=== PATIENT | female | born 1990 | race Caucasian/White ===

== ENCOUNTER 2021-05-20 07:55 | Outpatient (CLI) | payer OTHER, SELFPAY ==
--- NOTE | ~2021-05-20 | US_ITS ---
EXAMINATION: US OB <= 14 weeks fetus DATE: 05/20/2021 09:09 INDICATION: First trimester dating and viability assessment TECHNIQUE: Real-time pelvic transabdominal and transvaginal ultrasound was performed. COMPARISON: None. FINDINGS: The uterus measures 13.7 x 7.6 x 5.4 cm. There is an intrauterine gestational sac. A yolk sac is identified. heart motion is identified measuring 138 beats per minute (bpm) by M-mode Do ppler. The crown rump length measures 8 mm , which correlates with an estimated gestational age of 6 weeks and 5 day(s) (+/-) 4 day(s). The right ovary measures 4.1 x 2.9 x 2.2 cm. The left ovary measures 2.9 x 2.5 x 2.3 cm. There is nor mal vascular flow in the ovaries. There is no free fluid in the pelvis. IMPRESSION: 1. Live intrauterine with an estimated gestational age of 6 weeks and 5 day(s) (+/-) 4 day( s) and an estimated delivery date of 01/08/2022. Reviewed, dictated and finalized at location B. IMPRESSION: 1. Live intrauterine with an estimated gestational age of 6 weeks and 5 day(s) (+/-) 4 day(s) and an estimated delivery date of 01/08/2022.
== END 2021-05-20 07:56 | disposition home or self-care (01) ==
LOC: ANHIMG 07:59
PROVIDERS: Visit Provider Physician Assistant
DX: Z34.91 Encounter for supervision of normal pregnancy, unspecified, first trimester (principal); Z3A.01 Less than 8 weeks gestation of pregnancy
CPT/HCPCS: 76801

== ENCOUNTER 2021-07-16 07:44 | Outpatient (CLI) | payer OTHER, SELFPAY ==
--- NOTE | ~2021-07-16 | US_ITS ---
EXAMINATION: US OB follow up DATE: 07/16/2021 08:22 INDICATION: Encounter for supervision of normal , second trimester TECHNIQUE: Real-time ultrasound of the pelvis was performed. The interpreting radiologist was not pre sent for the study. COMPARISON: 05/20/2021 FINDINGS: There is a single living fetus in variable presentation. The placenta is posterior. c ardiac activity and movement are noted. heart rate is 146 beats per minute (bpm). The amn iotic fluid index is subjectively normal. The following biometric data were obtained: Biparietal diameter (BPD): 2.9 cm; head circumference (HC): 11.4 cm; abdominal circumference (AC): 10 .1 cm; femur length (FL): 1.8 cm. These measurements are concordant. Estimated weight is 134 g +/- 20 g, which correlates with the 93rd percentile when 01/08/2022 i s used as estimated date of delivery. As single measurements, these parameters are each equal to the following estimated gestational ages w ith ranges of +/- 2 standard deviations: BPD: 15 weeks 2 days +/- 1 weeks 1 days. HC: 15 weeks 4 days +/- 1 weeks 1 days. AC: 16 weeks 1 days +/- 1 weeks 5 days. FL: 15 weeks 3 days +/- 1 weeks 3 days. estimated gestational age based solely on measurements from this exam is 15 weeks 4 days +/- 1 weeks 1 days. IMPRESSION: 1. Single living fetus in variable presentation. 2. Estimated weight is 134 g +/- 20 g, which correlates with the 93rd percentile when 2 is used as estimated date of delivery. Reviewed, dictated and finalized at location A. IMPRESSION: 1. Single living fetus in variable presentation. 2. Estimated weight is 134 g +/- 20 g, which correlates with the 93rd per centile when 01/08/2022 is used as estimated date of delivery.
== END 2021-07-16 07:45 | disposition home or self-care (01) ==
LOC: ANHIMG 07:47
PROVIDERS: Visit Provider Physician Assistant
DX: Z34.90 Encounter for supervision of normal pregnancy, unspecified, unspecified trimester (principal); Z3A.15 15 weeks gestation of pregnancy
CPT/HCPCS: 76816

== ENCOUNTER 2021-12-13 09:43 | Inpatient (IN) | payer OTHER, SELFPAY ==
[2021-12-13] VITALS (56 sets, daily range): BP systolic 104–138; BP diastolic 39–79; PULSE 65–159; RESP 16–20; TEMP 36.3–36.7; O2SAT 96–100; BMI 34.8
[2021-12-13 10:26] LABS: Basophils Percent Auto 0.2 % (0.2-1.2); Eosinophils Absolute Auto 0.1 K/mm3 (0-0.3); Eosinophils Percent Auto 0.8 % (0-4.4); Hemoglobin 11.9 g/dL (12.0-15.0); Immature Granulocyte Absolute 0.19 K/mm3 (0.00-0.031); Lymphocytes Absolute Auto 1.59 K/mm3 (0.9-3.2); Lymphocytes Percent Auto 16.8 % (18.3-44.2); Mean Corpuscular Hemoglobin 32.2 pg (26-34); Mean Corpuscular Volume 94.9 fl (80-100); Mean Platelet Volume 10.9 fl (7.4-10.4); Monocytes Absolute Auto 0.5 K/mm3 (0.1-0.6); Monocytes Percent Auto 5.3 % (2.6-8.5); Neutrophils Absolute Auto 7.1 K/mm3 (1.3-6.7); Neutrophils Percent Auto 74.9 % (45.5-73.1); Platelet Count Result 210 k/mm3 (150-375); Red Blood Count 3.69 M/mm3 (4.2-5.4); Red Cell Distribution Width 14.3 % (11.5-14.5); White Blood Count 9.5 K/mm3 (4.5-10.0)
[2021-12-13] MEDS: LACTATED RINGERS 1,000 ML 125 ML IV CONT (10:30)
--- NOTE | 2021-12-13 10:35 | PM.IMHP ---
H&P: HPI History of Present Illness Date/Time: 12/13/21 10:35 Chief Complaint: Vaginal bleeding Narrative: Patient is a 31-year-old LMP 04/02/2021 currently 36w3d gestation with MARIBEL 01/07/2022 who presented to labor and delivery with complaints of vaginal bleeding. Patient receives outside care and states that has been uncomplicated thus far. Patient reports waking up this morning at 4:00 a.m. with right-sided lower back pain. A few hours later while making breakfast, patient reports experiencing a large gush of blood. She states I felt like I peed in my pants. Patient states that she went to bathroom to change her clothing and says that blood just kept coming. Patient denies any abdominal pain or contractions. Also denies any specific leakage of fluid as if membranes ruptured. Reports good movement. Denies any strenuous activity or recent intercourse. Upon arrival to labor and delivery, patient used restroom and bright red blood filled the toilet bowl. Patient states that all ultrasounds and testing has been normal with this . She was having growth scans performed every 4 weeks for prior history of LGA fetus during second . It is documented on an ultrasound report from 11/30/21 that patient stated that she may have gestational hypertension. When asked, patient states that she had a few elevated BP measurements on her home BP cuff, however, BP measurements in the office were within normal limits. Patient is asymptomatic and denies any headache, chest pain, SOB, N/V, visual disturbances, or RUQ tenderness. US did not report any other abnormalities, i.e. low lying placenta. Patient has a history of previous section x3. States that first section was performed for what sounds like nonreassuring heart tracing. Subsequent sections were scheduled repeat C-sections. Patient initially asked if permanent sterilization could be performed at this time, however, shortly afterwards, she declined proceeding with permanent sterilization. Therefore, this will not be performed. Review of Systems Review of Systems: All systems reviewed & are unremarkable except as noted in HPI and below Constitutional: Constitutional: Reports as per HPI and Reports no additional constitutional complaints Eyes: Eyes: Reports as per HPI and Reports no additional eye complaints ENT: Reports system reviewed and no additional complaints, except as documented and Reports as per HPI Cardiovascular: Cardiovascular: Reports as per HPI and Reports no additional cardiovascular complaints Respiratory: Respiratory: Reports as per HPI and Reports no additional respiratory complaints Gastrointestinal: Gastrointestinal: Reports as per HPI and Reports no additional gastrointestinal complaints Genitourinary: Genitourinary: Reports no additional female genitourinary complaints and Reports as per HPI Musculoskeletal: Musculoskeletal: Reports no additional musculoskeletal complaints and Reports as per HPI Integumentary/Breasts: Skin/Breast: Reports system reviewed and no additional complaints, except as docu and Reports as per HPI Neurologic: Reports system reviewed and no additional complaints, except as documented and Reports as per HPI Psychiatric: Psychiatric: Reports no additional psychiatric complaints and Reports as per HPI Endocrine: Endocrine: Reports no additional endocrine complaints and Reports as per HPI Hematologic/Lymphatic: Hematologic/Lymphatic: Reports no additional hematologic/lymphatic complaints and Reports as per HPI Allergic/Immunologic: Allergic/Immunologic: Reports no additional allergic/immunologic complaints and Reports as per HPI [facility] Surgical History Surgical History H/O dilation and curettage x1 Previous section x3 S/P tonsillectomy and adenoidectomy Social History Social History (Updated 12/13/21
--- NOTE | 2021-12-13 10:57 | WPDANESEPP ---
Anes - Eval Pre Procedure Procedure: Repeat c section Date/Time: 12/13/21 10:57 Surgeon: Ed Preop Diagnosis: Vaginal bleeding, previous c section Pre Op Diagnosis: bleeding Patient Data Age: 31 Gender: F Height: 1.65 m Weight: 95 kg Allergies Allergy/AdvReac Type Severity Reaction Status Date / Time No Known Allergies Allergy Verified 10/06/18 10:49 Home Medications Medication Instructions Recorded Confirmed Type azithromycin 250 mg tablet See Rx Instructions PO .COMPLEX #6 02/07/19 Rx tabs benzonatate 100 mg capsule 100 mg PO TID #20 caps 02/07/19 Rx (Tessalon Perles) codeine 10 mg-guaifenesin 100 mg/5 7.5 ml PO Q6H PRN cough #118 mL 02/07/19 Rx mL oral liquid lidocaine HCl 2 % mucosal solution 5 ml mucous membrane QID PRN pain 02/07/19 Rx (Lidocaine Viscous) #100 mL norelgestromin 150 mcg-e.estradiol patch 02/07/19 History 35 mcg/24 hr weekly transderm patch (Xulane) Laboratory Tests 12/13/21 12/13/21 12/13/21 10:05 10:05 10:45 WBC 9.5 K/mm3 K/mm3 (4.5-10.0) RBC 3.69 M/mm3 L M/mm3 (4.2-5.4) Hgb 11.9 g/dL L g/dL (12.0-15.0) Hct 35.0 % L % (37.0-47.0) MCV 94.9 fl fl (80-100) MCH 32.2 pg pg (26-34) MCHC 34.0 g/dl g/dl (32-36) RDW 14.3 % % (11.5-14.5) Plt Count 210 k/mm3 k/mm3 (150-375) MPV 10.9 fl H fl (7.4-10.4) Immature Gran % (Auto) 2.0 % H % (0-0.5) Neut % (Auto) 74.9 % H % (45.5-73.1) Lymph % (Auto) 16.8 % L % (18.3-44.2) [place] % (Auto) 5.3 % % (2.6-8.5) Eos % (Auto) 0.8 % % (0-4.4) Baso % (Auto) 0.2 % % (0.2-1.2) Lymph # (Auto) 1.59 K/mm3 K/mm3 (0.9-3.2) [place] # (Auto) 0.5 K/mm3 K/mm3 (0.1-0.6) Eos # (Auto) 0.1 K/mm3 K/mm3 (0-0.3) Baso # (Auto) 0.0 K/mm3 K/mm3 (0.0-0.1) Abs Immat Gran (auto) 0.19 K/mm3 H K/mm3 (0.00-0.031) Absolute Neuts (auto) 7.1 K/mm3 H K/mm3 (1.3-6.7) Absolute Nucleated RBC 0.0 K/mm3 K/mm3 (0.0-0.012) Nucleated RBC % 0.0 % % (0.0-0.2) PT Pending INR Pending APTT Pending Fibrinogen Pending D-Dimer Pending RPR Pending Patient hx anesthesia problems: none Family hx anesthesia problems: none Results Review: All pre-operative results and documents have been reviewed as part of the pre-operative evaluation. [facility] Surgical History Surgical History H/O dilation and curettage x1 Previous section x3 S/P tonsillectomy and adenoidectomy Social History Social History Smoking packs per day: 1 Smoking cigarettes per day: 20.0 Smoking status: Current every day smoker Tobacco type: cigarettes Exam Day of Procedure 12/13/21 10:57 Patient weight: normal Heart: regular rate and rhythm Lungs: normal air movement Airway: Mallampati scale class II Neurological: alert and oriented
[2021-12-13] MEDS: ceFAZolin 2 GM/D5W 50 ML 2 GM/50 ML BAG IVPB (10:59)
[2021-12-13 11:05] LABS: Prothrombin Time 12.8 Seconds (11.1-14.7)
[2021-12-13 11:06] LABS: Fibrinogen 363 mg/dl (215-510); Partial Thromboplastin Time 27.1 SECONDS (22.3-36.8)
--- NOTE | 2021-12-13 11:06 | WPDHPUPDATE1 ---
History and Physical Update Update Date/Time: 12/13/21 11:06 History and Physical has been reviewed, including an updated exam of the patient. There are NO changes in the patient's condition. Risks, benefits, and alternatives have been discussed and questions answered. Patient agrees to proceed with procedure.
--- NOTE | 2021-12-13 12:30 | W.PM.PROC2 ---
Procedure Note - Detailed Date of Procedure 12/13/21 Pre-op Diagnosis IUP at 36w3d gestation Vaginal bleeding Previous section x 3 Post-op Diagnosis Same Procedure Performed Repeat low transverse section via Pfannenstiel Surgeon Katy Ward MD Smasher Imani Garcia Indications Suspected placental abruption Findings Live female infant in cephalic presentation, apgars 7/9, weighing 6 lbs. 13 oz., clear amniotic fluid, moderate amount of dark bloody fluid upon entry into uterus; otherwise, normal appearing uterus, ovaries, and fallopian tubes bilaterally; dense scar tissue encountered to level of fascia and along lower uterine segment of uterus Description of Procedure The patient was taken to the operating room, where she self-transferred to the operating room table. Spinal anesthesia was administered and found to be adequate. The patient was placed in dorsal supine position with a leftward tilt. She was prepped and draped in the usual sterile fashion. Spinal anesthesia was tested and found to be adequate. A Pfannenstiel skin incision was made with a scalpel and carried through to underlying layer of fascia with the Bovie. Dense scar tissue was encountered to level of fascia. The fascia was incised in the midline and the incision was extended laterally with the use of forceps and Cam scissors. The inferior aspect of the fascial incision was grasped with Ino clamps, elevated, and the underlying rectus muscle were dissected off with Cam scissors. Attention was then turned to the superior aspect of the fascial incision, which in a similar manner, was grasped with Ino clamps, elevated, and the underlying rectus muscles were also dissected off with Cam scissors. The rectus muscles were grasped with Allis clamps, in the midline, and the peritoneal cavity was entered bluntly. Dense adhesions were encountered and this incision was carefully extended superiorly and inferiorly. A bladder blade was inserted. Adhesions were noted along the anterior surface of the lower uterine segment. Bladder margins not clearly delineated, so bladder flap not performed. An incision above the adhesions was made with the scalpel, however, this was still a low-transverse uterine incision. Immediately upon entry into the uterus, a moderate amount of bloody fluid was noted. The uterine incision was extended laterally with bandage scissors. Amniotic sac was visualized and amniotomy was performed. Clear amniotic fluid was noted. The infant's head was grasped and gently guided to the level of the uterine incision. The 's head was delivered easily and atraumatically without difficulty followed by the neck, shoulders, and rest of body with gentle fundal pressure. The 's nose and mouth were suctioned bulb suction. The was crying spontaneously. The cord was clamped and cut and the was handed off to awaiting pediatric staff. A segment of cord was collected for cord gases. Cord blood was also collected. The placenta was then delivered manually with gentle uterine massage. On brief inspection, placenta appeared grossly normal without evidence of significant clots. Uterus was exteriorized and cleared of all clots and debris. The bladder was noted to be tethered to the right side of lower uterine segment. The uterine incision was reapproximated with 0 Vicryl in a running, locked fashion. A second imbricating layer using 0 Monocryl performed. An small area of oozing was noted just left of midline. This area was made hemostatic with a figure of eight suture using 0 Vicryl. Excellent hemostasis was noted. There was a superficial vessel noted on the anterior surface of the bladder that was oozing. Minimal cautery was attempted, however, bleeding persisted. A short running segment using 3-0 Vicryl was used to obtain hemostasis. No further bleeding was noted. On inspection, the uterus, ovaries, and fallopian tubes appeared to be normal bilaterally. The u
--- NOTE | 2021-12-13 12:35 | PM.OBPRVD ---
OB - Delivery Note Procedure Delivery date: 12/13/21 Procedure: Procedures Operation Date: 12/13/21 11:00 Actual Procedure Side Surgeon p Section Katy Ward MD Events: Previous Delivery (x3) and Other (outside care) Intrapartal Events: Placental Abruption (suspected) Delivery monitor: External FHT and External Uterine Route of delivery: Specimen: Yes (placenta and cord, cord blood, and cord gases) Quantitative Blood Loss (ml): 720 Anesthesia type: Spinal Disposition: PACU Complications: No immediate complications [place] Baby Date of : 12/13/21 Time of : 11:24 Weeks of gestation at delivery: 36 (36.3) Infant gender: Female Weight (pounds): 6 Weight (ounces): 13 presentation: vertex Placenta delivery description: Manual Removal Cord Vessel Description: 3 Vessels score one minute: 7 score five minutes: 9 AMG Delivery Billing Delivery Delivery: Delivery Charge
[2021-12-13] MEDS: OXYTOCIN 30 UNITS/NS 500 ML 30 UNITS/500 ML BAG 125 UNITS IV CONT (12:46)
--- NOTE | 2021-12-13 13:36 | LDADM ---
This patient, Cherry Oneill, was admitted to Labor/Delivery/Recovery 120 on 12/13/21 at 09:44. Plans for labor, pain management and were discussed with patient. Patient/family oriented to hospital policies and general routines including ID bracelet, bed and alarms, visiting hours, pain management, procedures, bathroom and other care routines, personal items, smoking policy, room service/diet and guest tray routines, security routines, and visiting hours. Patient/Family are encouraged to report perceived risks to care and to ask questions if they do not understand what they are told or what they should do. See OBIX for further documentation.
[2021-12-13 13:59] LABS: Amphetamine Screen Urine Negative (Negative); Barbiturate Screen Urine Negative (Negative); Benzodiazepines Screen Urine Negative (Negative); Cannabinoid Screen Urine Negative (Negative); Cocaine Screen Urine Negative (Negative); Methadone Screen Urine Negative (Negative); Opiate Screen Urine Negative (Negative); Phencyclidine Screen Urine Negative (Negative)
--- NOTE | 2021-12-13 15:08 | OBPPTRN ---
Patient transferred to post room # 286 via stretcher and moved to bed without difficulty via maxi air. and Support person present. PT Oriented to unit, room, information board, rooming in, admission packet and security measures. PT introductions made and plan of care discussed per post , pain management, c section, breast feeding, daily care activities.PT and spouse both recipients of such instructions and no barriers to learning identified at this time. PT received such instructions via one to one discussion, mom baby care guide and demonstrations this shift. Patient verbalizes understanding.
[2021-12-13] MEDS: KETOROLAC 30 MG/ML VIAL (*BKC) IV PUSH ×2 (15:41→22:45)
[2021-12-13] MEDS: HYDROcodone/acetaminophen (*CRX) 5-325 MG TABLET 1 TAB PO ×3 (15:43→21:02)
[2021-12-13] MEDS: SIMETHICONE 80 MG TAB.CHEW PO (15:44)
[2021-12-13] MEDS: DEXTROSE 5%/0.45% SOD CHL 1,000 ML 125 ML IV CONT (17:24)
[2021-12-13] MEDS: POLYSACCHARIDE IRON COMPLEX 150 MG CAPSULE PO (17:24)
[2021-12-13] MEDS: DOCUSATE SODIUM 100 MG CAPSULE PO (17:25)
[2021-12-14 00:20] VITALS: BP 105/64; PULSE 73; RESP 18; TEMP 36.7; O2SAT 97
[2021-12-14] MEDS: HYDROcodone/acetaminophen (*CRX) 5-325 MG TABLET 1 TAB PO ×2 (00:34→04:33)
[2021-12-14] MEDS: KETOROLAC 30 MG/ML VIAL (*BKC) IV PUSH (04:32)
[2021-12-14 04:41] VITALS: BP 121/79; PULSE 81; RESP 18; TEMP 36.8; O2SAT 97
[2021-12-14 06:27] LABS: Rapid Plasma Reagin Non-Reactive (NonReactive)
[2021-12-14 06:46] LABS: Basophils Percent Auto 0.3 % (0.2-1.2); Eosinophils Absolute Auto 0.1 K/mm3 (0-0.3); Eosinophils Percent Auto 1.2 % (0-4.4); Hematocrit 29.5 % (37.0-47.0); Hemoglobin 9.9 g/dL (12.0-15.0); Lymphocytes Absolute Auto 1.14 K/mm3 (0.9-3.2); Lymphocytes Percent Auto 10.9 % (18.3-44.2); Mean Corpuscular HGB Conc 33.6 g/dl (32-36); Mean Corpuscular Hemoglobin 32.8 pg (26-34); Mean Corpuscular Volume 97.7 fl (80-100); Mean Platelet Volume 10.7 fl (7.4-10.4); Monocytes Absolute Auto 0.6 K/mm3 (0.1-0.6); Monocytes Percent Auto 5.3 % (2.6-8.5); Neutrophils Absolute Auto 8.5 K/mm3 (1.3-6.7); Neutrophils Percent Auto 81.3 % (45.5-73.1); Platelet Count Result 171 k/mm3 (150-375); Red Blood Count 3.02 M/mm3 (4.2-5.4); Red Cell Distribution Width 14.2 % (11.5-14.5); White Blood Count 10.4 K/mm3 (4.5-10.0)
[2021-12-14] MEDS: HYDROcodone/acetaminophen (*CRX) 10-325 MG TABLET 1 TAB PO ×6 (06:49→23:19)
[2021-12-14 07:32] LABS: HIV 1/2 Ab P24 Ag Result Negative (Negative)
[2021-12-14 08:10] VITALS: BP 126/79; PULSE 82; RESP 16; TEMP 36.1; O2SAT 99
--- NOTE | 2021-12-14 08:18 | PM.OBPNVD ---
OB - PN: Subj Subjective Date/time seen: 12/14/21 08:18 Patient doing well this morning. Pain reasonably controlled with medication. Denies any headache, chest pain, shortness of breath, nausea, or vomiting. Tolerating PO diet. Grajeda catheter removed this AM. Has voided afterwards. No flatus yet. Ambulating well. Reports moderate gush of blood and clots when getting up for first time after catheter removal. Minimal bleeding since then. OB - PN: Obj Data Labs CBC & Chem 7: 12/14/21 06:31 Labs: Laboratory Results - last 24 hr 12/13/21 12/13/21 12/13/21 10:05 10:05 10:05 WBC 9.5 RBC 3.69 L Hgb 11.9 L Hct 35.0 L MCV 94.9 MCH 32.2 MCHC 34.0 RDW 14.3 Plt Count 210 MPV 10.9 H Immature Gran % (Auto) 2.0 H Neut % (Auto) 74.9 H Lymph % (Auto) 16.8 L [place] % (Auto) 5.3 Eos % (Auto) 0.8 Baso % (Auto) 0.2 Lymph # (Auto) 1.59 [place] # (Auto) 0.5 Eos # (Auto) 0.1 Baso # (Auto) 0.0 Abs Immat Gran (auto) 0.19 H Absolute Neuts (auto) 7.1 H Absolute Nucleated RBC 0.0 Nucleated RBC % 0.0 PT INR APTT Fibrinogen D-Dimer Urine Opiates Screen Urine Methadone Screen Ur Barbiturates Screen Ur Phencyclidine Scrn Ur Amphetamine Screen U Benzodiazepines Scrn Urine Cocaine Screen U Cannabinoids Screen RPR Non-reactive HIV 1&2 Ab/P24 Ag 4thGn Blood Type O Positive Antibody Screen Negative 12/13/21 12/13/21 12/14/21 10:05 10:45 06:31 WBC RBC Hgb Hct MCV MCH MCHC RDW Plt Count MPV Immature Gran % (Auto) Neut % (Auto) Lymph % (Auto) [place] % (Auto) Eos % (Auto) Baso % (Auto) Lymph # (Auto) [place] # (Auto) Eos # (Auto) Baso # (Auto) Abs Immat Gran (auto) Absolute Neuts (auto) Absolute Nucleated RBC Nucleated RBC % PT 12.8 INR 1.0 APTT 27.1 Fibrinogen 363 D-Dimer 1.00 H Urine Opiates Screen Negative Urine Methadone Screen Negative Ur Barbiturates Screen Negative Ur Phencyclidine Scrn Negative Ur Amphetamine Screen Negative U Benzodiazepines Scrn Negative Urine Cocaine Screen Negative U Cannabinoids Screen Negative RPR HIV 1&2 Ab/P24 Ag 4thGn Negative Blood Type Antibody Screen 12/14/21 06:31 WBC 10.4 H RBC 3.02 L Hgb 9.9 L Hct 29.5 L MCV 97.7 MCH 32.8 MCHC 33.6 RDW 14.2 Plt Count 171 MPV 10.7 H Immature Gran % (Auto) 1.0 H Neut % (Auto) 81.3 H Lymph % (Auto) 10.9 L [place] % (Auto) 5.3 Eos % (Auto) 1.2 Baso % (Auto) 0.3 Lymph # (Auto) 1.14 [place] # (Auto) 0.6 Eos # (Auto) 0.1 Baso # (Auto) 0.0 Abs Immat Gran (auto) 0.10 H Absolute Neuts (auto) 8.5 H Absolute Nucleated RBC 0.0 Nucleated RBC % 0.0 PT INR APTT Fibrinogen D-Dimer Urine Opiates Screen Urine Methadone Screen Ur Barbiturates Screen Ur Phencyclidine Scrn Ur Amphetamine Screen U Benzodiazepines Scrn Urine Cocaine Screen U Cannabinoids Screen RPR HIV 1&2 Ab/P24 Ag 4thGn Blood Type Antibody Screen OB - PN A/P Assessment and Plan (1) Delivery by section using transverse incision of lower segment of uterus: Code(s): O82 - Encounter for delivery without indication Status: Acute Assessment and Plan: POD#1 doing well continue routine postoperative care encourage ambulation and use of IS pt states she is on amoxicillin for a tooth infection, however, left medication at home, ordered Time Spent With Patient Time: Total time spent is greater than 50% in coordination of care (as documented) at patient's floor/unit and/or counseling patient: Review of Systems Review of Systems: All systems reviewed & are unremarkable except as noted in HPI and below Exam Const: General: cooperative, healthy appearing, comfortable and no acute distress GI: Inspection: non-distended GI Palp: Yes Soft to pa
[2021-12-14] MEDS: MULTIVIT/MIN/PREN/FOL AC/IRON TABLET 1 TAB PO (08:42)
[2021-12-14] MEDS: POLYSACCHARIDE IRON COMPLEX 150 MG CAPSULE PO ×2 (08:42→16:53)
[2021-12-14] MEDS: DOCUSATE SODIUM 100 MG CAPSULE PO ×2 (08:42→16:54)
[2021-12-14] MEDS: AMOXICILLIN 500 MG CAPSULE PO ×2 (09:30→16:54)
[2021-12-14 12:36] LABS: Hepatitis B Surface Antigen Negative (Negative); Rubella IgG Antibody 17.8 IU/ML
[2021-12-14] MEDS: IBUPROFEN 600 MG TABLET PO ×2 (13:24→19:59)
--- NOTE | 2021-12-14 16:44 | PC.NURSE ---
Patient instructed on viewed the discharge video Mother & Baby Care, The First Two Weeks . Patient was given the opportunity and encouraged to ask questions. Patient verbalized understanding of information shared and has been given the mother/baby guide for home reference.
[2021-12-14 20:00] VITALS: BP 125/80; PULSE 86; RESP 18; TEMP 36.7
[2021-12-15] MEDS: AMOXICILLIN 500 MG CAPSULE PO (01:43)
[2021-12-15] MEDS: HYDROcodone/acetaminophen (*CRX) 10-325 MG TABLET 1 TAB PO ×2 (01:44→05:41)
[2021-12-15] MEDS: IBUPROFEN 600 MG TABLET PO (01:44)
[2021-12-15 08:05] VITALS: BP 121/68; PULSE 80; RESP 16; TEMP 36.1; O2SAT 100
[2021-12-15] MEDS: POLYSACCHARIDE IRON COMPLEX 150 MG CAPSULE PO (08:13)
[2021-12-15] MEDS: MULTIVIT/MIN/PREN/FOL AC/IRON TABLET 1 TAB PO (08:13)
--- NOTE | 2021-12-15 08:43 | PM.OBPNVD ---
OB - PN: Subj Subjective Date/time seen: 12/15/21 08:43 Patient doing well. Pain well controlled with medication. Denies any headache, chest pain, SOB, N/V. Tolerating PO diet. Ambulating without difficulty. Voiding without difficulty. Passing flatus and BM. Minimal lochia. OB - PN: Obj Data Labs CBC & Chem 7: 12/14/21 06:31 Labs: Laboratory Results - last 24 hr 12/14/21 06:31 Hep Bs Antigen Negative Rubella IgG Antibody 17.8 OB - PN A/P Assessment and Plan (1) Delivery by section using transverse incision of lower segment of uterus: Code(s): O82 - Encounter for delivery without indication Status: Acute Assessment and Plan: POD#2 doing well continue routine postoperative care encourage ambulation and use of IS discharge home in stable condition emergency precautions reviewed f/u in office in 2 weeks for postoperative visit Time Spent With Patient Time: Total time spent is greater than 50% in coordination of care (as documented) at patient's floor/unit and/or counseling patient: Review of Systems Review of Systems: All systems reviewed & are unremarkable except as noted in HPI and below Constitutional: Constitutional: Reports as per HPI and Reports no additional constitutional complaints Exam Const: General: cooperative, healthy appearing, comfortable and no acute distress GI: Inspection: non-distended GI Palp: Yes Soft to palpation and No Tenderness to palpation present (GI) Other: inc c/d/i fundus firm below umbilicus Extrem: Right lower extremity: edema (trace) Left lower extremity: edema (trace) Other: no calf tenderness
--- NOTE | 2021-12-15 08:50 | PM.OBDSVD ---
DS: Admitting Diagnosis Discharge Date 12/15/21 Admitting Diagnosis IUP at 36w3d Vaginal bleeding Previous C/S x 3 OB - DS: Summary OB Procedures : None OB Procedures Intrapartum: OB Procedures: : None Peripartum Data Procedures: Procedures Operation Date: 12/13/21 11:00 Actual Procedure Side Surgeon p Section Katy Ward MD Time Spent with Patient Time attestation: Total time spent providing and/or coordinating discharge services: DS: Data Data Completed and Pending Pending studies at discharge: Pending at discharge 12/13/21 12:55 Surgical [PTH] Routine Labs on day of discharge: Labs from last 24 hours 12/14/21 06:31 Hep Bs Antigen Negative Rubella IgG Antibody 17.8 Discharge Plan Discharge Attending physician on discharge: Katy Ward Discharging Clinician: Katy Ward Anticipated Discharge Date/Time: 12/15/21 08:51 Patient Disposition: Home, Self-Care Activity: as tolerated and pelvic rest Diet: regular Discharge Instructions: Call office ([phone]) to schedule the following appointments: 1. Postoperative/wound check in 2 weeks. 2. visit in 4-6 weeks. You may take Ibuprofen 600mg every 6 hours as needed for pain. I have sent a prescription for a stronger pain medication, [place], to your pharmacy. You may take this as prescribed for breakthrough pain (pain that is not controlled with Ibuprofen). No driving for at least two weeks. You also may not drive while taking narcotics. Pain medication may make you constipated. It may be helpful to take an [id number] stool softener, such as Colace and/or Senokot, along with the pain medication to help lessen constipation. Call office or go to ED for pain not controlled with medication, headache, chest pain, shortness of breath, fever, chills, persistent nausea or vomiting, severe abdominal pain, heavy vaginal bleeding >2 pads/hour, foul vaginal discharge or odor, any redness near incision, severe pain, pus or drainage from incision site, or problems with your breasts. Patient Instructions: Antibiotic Form, How to Stop Smoking (DC) Stand Alone Forms: General Discharge Information Follow-up/Referrals: Katy Ward MD [Physician] - Discharge Medications: New hydrocodone-acetaminophen 5-325 mg Tablet 1 - 2 tablet PO Q4-6H PRN (Reason: Moderate Pain (4-6)) Qty: 30 0RF Continued omeprazole magnesium [Prilosec OTC] 20 mg Tablet,Delayed Release (Dr/Ec) 20 mg PO BID aspirin 81 mg Capsule 81 mg PO DAILY Classic 1 tab-cap PO DAILY Date of admission: 12/13/21 09:44 Primary Care Provider: PHYSICIAN,ACCOUNTS PAYABLE COORDINATOR Admitting Provider: Katy Ward Attending physician on admission: Katy Ward Condition: Stable
[2021-12-15] MEDS: HYDROcodone/acetaminophen (*CRX) 5-325 MG TABLET 1 TAB PO (09:05)
--- NOTE | 2021-12-15 11:52 | PC.NURSE ---
Primary RN reported mother is mix feeding with pump/feed breastmilk, formula feeding and has gone home.
[2021-12-16 09:13] VITALS: BP 132/81; PULSE 77; RESP 20; TEMP 37.3; O2SAT 100
== END 2021-12-15 10:12 | disposition home or self-care (01) | DRG 786 ==
LOC: ANHLDR 11:21 → ANHOB2 15:17
PROVIDERS: Admitting Provider Student in an Organized Health Care Education/Training Program; Visit Provider Student in an Organized Health Care Education/Training Program
PROC: 10D00Z1 Extraction of Products of Conception, Low, Open Approach (ICD-10-PCS; CPT 59514; principal; 2021-12-13 11:00)
DX: O34.219 Maternal care for unspecified type scar from previous cesarean delivery (principal); O45.93 Premature separation of placenta, unspecified, third trimester; O99.334 Smoking (tobacco) complicating childbirth; F17.210 Nicotine dependence, cigarettes, uncomplicated; Z3A.36 36 weeks gestation of pregnancy; Z37.0 Single live birth; K04.7 Periapical abscess without sinus
CPT/HCPCS: 36415; 80307; 85025; 85380; 85384; 85610; 85730; 86592; 86703; 86762; 86850; 86900; 86901; 87340; 88307; A9270; G0432; J0131; J0690; J1200; J1885; J2274; J2405; J2590; J7120